=== PATIENT | male | born 1970 | race Caucasian/White ===

== ENCOUNTER 2018-01-14 13:41 | Emergency (ER) | payer MEDICAID ==
[~2018-01-14] VITALS: Ht 175.3 cm; Wt 104.3 kg
[2018-01-14 14:21] VITALS: BP_SYST 134
[2018-01-14] MEDS ORDERED: KETOROLAC TROMETHAMINE 60 MG/2 ML VIAL IM ONE (16:00)
== END 2018-01-14 16:10 | disposition left against medical advice (07) ==
LOC: SED 13:41
DX: S20.212A Contusion of left front wall of thorax, initial encounter (principal); I25.2 Old myocardial infarction; R03.0 Elevated blood-pressure reading, without diagnosis of hypertension; W19.XXXA Unspecified fall, initial encounter; Y93.89 Activity, other specified; Y92.89 Other specified places as the place of occurrence of the external cause; Y99.8 Other external cause status
CPT/HCPCS: 71250; 96372; 99284; J1885

== ENCOUNTER 2018-12-29 20:29 | Emergency (ER) | payer MEDICAID ==
[~2018-12-29] VITALS: Ht 175.3 cm; Wt 104.3 kg
[2018-12-29 20:40] VITALS: BP_SYST 145
--- NOTE | 2018-12-29 20:50 | NUR ---
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 Pt states that while working on a wooden picket and chain link fence. Pt states that he was using a tool similar to a sledge hammer and when he applied force, one of the chain links snapped causing the hammer to hit him in the left brow. +LOC, -N/V, no periorbitat deformities, no neuro or visual deficits, pain with movement of left eye.
--- NOTE | 2018-12-29 20:52 | NUR ---
Dr. Hawkins at bedside to suture laceration.
[2018-12-29] MEDS ORDERED: LIDOCAINE/EPI 1% 1:100000 20 ML VIAL INJ ONE (21:04)
--- NOTE | 2018-12-29 21:10 | NUR ---
Laceration well approximated with 3 sutures, no bleeding. Covered with non-adherent bandage.
--- NOTE | 2018-12-29 21:28 | NUR ---
Pt to CT via stretcher.
--- NOTE | 2018-12-29 21:33 | NUR ---
Note undone in EDM - 12/29/18 at 2310 by SDEDAJ Patient given written and verbal discharge instructions and verbalizes understanding. ER discussed with patient the results and treatment provided. Patient in stable condition. ID arm band removed. Rx of Motrin given. Patient educated on pain management and to follow up with PMD. Pain Scale 2/10. Opportunity for questions provided and answered. Medication side effect fact sheet provided.
--- NOTE | 2018-12-29 21:35 | NUR ---
Pt returns from CT in stable condition.
[2018-12-29] MEDS ORDERED: IBUPROFEN 600 MG TABLET PO ONE (21:45)
[2018-12-29 22:40] VITALS: BP_SYST 132
--- NOTE | 2018-12-29 22:40 | NUR ---
Patient given written and verbal discharge instructions and verbalizes understanding. ER MD discussed with patient the results and treatment provided. Patient in stable condition. ID arm band removed. Rx of Naprosyn given. Patient educated on pain management and to follow up with PMD. Pain Scale 3/10. Opportunity for questions provided and answered. Medication side effect fact sheet provided.
== END 2018-12-29 22:40 | disposition home or self-care (01) ==
LOC: SED 20:29
DX: S01.112A Laceration without foreign body of left eyelid and periocular area, initial encounter (principal); S06.0X1A Concussion with loss of consciousness of 30 minutes or less, initial encounter; W22.8XXA Striking against or struck by other objects, initial encounter; Y93.89 Activity, other specified; Y92.89 Other specified places as the place of occurrence of the external cause; Y99.8 Other external cause status
CPT/HCPCS: 70450-TC; 70486-TC; 99284

== ENCOUNTER 2019-07-09 20:07 | Emergency (ER) | payer MEDICAID ==
[~2019-07-09] VITALS: Ht 162.6 cm; Wt 104.3 kg
[2019-07-09 20:20] VITALS: BP_SYST 142
[2019-07-09] MEDS ORDERED: NACL 0.9% 1,000 ML IV ONE (20:52)
[2019-07-09 21:58] VITALS: BP_SYST 134
== END 2019-07-09 21:58 | disposition left against medical advice (07) ==
LOC: SED 20:07
DX: S92.532A Displaced fracture of distal phalanx of left lesser toe(s), initial encounter for closed fracture (principal); R10.12 Left upper quadrant pain; R07.89 Other chest pain; V23.4XXA Motorcycle driver injured in collision with car, pick-up truck or van in traffic accident, initial encounter; Y93.89 Activity, other specified; Y92.89 Other specified places as the place of occurrence of the external cause; Y99.8 Other external cause status
CPT/HCPCS: 99283

== ENCOUNTER 2019-11-29 17:48 | Inpatient (IN) | payer MEDICAID ==
[~2019-11-29] VITALS: Ht 175.3 cm; Wt 120.2 kg
[~2019-11-29 17:48] MED LIST: BUPIVACAINE /DEX PF 0.75% SPINAL 2 ML AMP INJ ONE; BUPIVACAINE /PF 0.25% 30 ML VIAL INJ ONE; LR 1,000 ML IV.SOLN IV ONE; MIDAZOLAM HCL 5 MG/5 ML VIAL IVP ONE; NS IRRIG SOLN 1000 ML IR ONE; PROPOFOL 200MG/ 20ML VIAL (DIPRIVAN) IV ONE; cefTRIAXone 1 GM VIAL IV ONE
[2019-11-29 18:00] VITALS: BP_SYST 148
--- NOTE | 2019-11-29 18:02 | NUR ---
Patient to ER bed 03 to gown for evaluation. Side rails up. Report given to MERCEDES Castillo
--- NOTE | 2019-11-29 18:03 | NUR ---
Patient presented to ER C/O abdominal pain. Patient AAOx4, ambulatory to ER, afebrile, skin pink & warm, pain /, denies N/V/D. Patient states he he has abdominal pain today, PT reports abd sx in HX.
--- NOTE | 2019-11-29 18:04 | NUR ---
EKG performed at by MAEVE LONG. Physician given copy of EKG for review.
--- NOTE | 2019-11-29 18:05 | NUR ---
ER Dr. Hilton at bedside examining patient.
--- NOTE | 2019-11-29 18:09 | NUR ---
# 18 gauge angiocath placed to RIGHT AC. Use of asceptic technique. Opsite placed over site. Blood return noted. Blood for lab drawn from site. Flushed with 10 cc of normal saline. No evidence of infiltration noted. Patient tolerated well. Medicated per MD orders. IVF infusing with no s/s of infiltration at this time. Will cont to monitor
--- NOTE | 2019-11-29 18:10 | NUR ---
Note undone in EDM - 11/29/19 at 1907 by [email or web address] # 18 gauge angiocath placed to L AC. Use of asceptic technique. Opsite placed over site. Blood return noted. Blood for lab drawn from site. Flushed with 10 cc of normal saline. No evidence of infiltration noted. Patient tolerated well. Medicated per MD orders. IVF infusing with no s/s of infiltration at this time. Will cont to monitor
[2019-11-29] MEDS ORDERED: NACL 0.9% 1,000 ML IV ONE (18:15)
[2019-11-29] MEDS ORDERED: fentaNYL CITRATE/PF 100 MCG/2 ML AMP IVP ONE (18:15)
[2019-11-29 18:33] LABS: BASOPHILS # (AUTO) 0.1 K/uL (0.0-0.2); BASOPHILS % (AUTO) 0.5 % (0.0-2.0); EOSINOPHILS # (AUTO) 0.2 K/uL (0.0-0.4); EOSINOPHILS % (AUTO) 1.4 % (0.0-4.0); HEMATOCRIT 47.5 % (36-54); HEMOGLOBIN 16.3 g/dL (14.0-18.0); LYMPHOCYTES # (AUTO) 2.8 K/uL (1.0-5.5); LYMPHOCYTES % (AUTO) 21.2 % (20.5-51.5); MEAN CORPUSCULAR HEMOGLOBIN 31 pg (27-31); MEAN CORPUSCULAR HGB CONC 34 % (32-36); MEAN CORPUSCULAR VOLUME 89 fL (79.0-98.0); MONOCYTES # (AUTO) 0.8 K/uL (0.0-1.0); MONOCYTES % (AUTO) 6.1 % (1.7-9.3); NEUTROPHILS # (AUTO) 9.5 K/uL (1.8-7.7); NEUTROPHILS % (AUTO) 70.8 % (40.0-70.0); PLATELET COUNT (AUTO) 279 K/uL (130-430); RED BLOOD CELL COUNT(AUTO) 5.35 MIL/uL (4.2-6.2); RED CELL DISTRIBUTION WIDTH 13.5 % (9.0-15.0); WHITE BLOOD COUNT (AUTO) 13.4 K/uL (4.8-10.8)
[2019-11-29 18:41] LABS: ANION GAP 3 (5-15); CALCIUM 9.1 mg/dL (8.4-11.0); CHLORIDE 102 mmol/L (98-107); CREATININE 1.04 mg/dL (0.55-1.30); GLUCOSE 115 mg/dL (70-99); POTASSIUM 4.2 mmol/L (3.5-5.1); SODIUM SERUM 136 mmol/L (136-145); UREA NITROGEN, BLOOD 18 mg/dL (8-21)
[2019-11-29 18:45] LABS: GFR AFRICAN AMERICAN 97 mL/min (>90)
[2019-11-29] MEDS ORDERED: IOHEXOL 350 mgI/mL, 150 ML INFUS..BTL IV ONE (18:46)
[2019-11-29 18:47] LABS: ALANINE AMINOTRANSFERASE 52 U/L (12-78); ALBUMIN 3.8 g/dL (3.4-4.8); ASPARTATE AMINOTRANSFERASE 33 U/L (10-37); LIPASE 85 U/L (73-393); TOTAL BILIRUBIN 0.4 mg/dL (0.0-1.0)
[2019-11-29 18:48] LABS: PROTHROMBIN TIME 9.6 SECS (9.5-12.5)
[2019-11-29 19:02] LABS: ALCOHOL, BLOOD < 3 mg/dL (<10)
--- NOTE | 2019-11-29 19:15 | NUR ---
PATIENT TO ER BED [address]/RADIOLOGY.
--- NOTE | 2019-11-29 19:18 | NUR ---
REPORT TO FRANKLIN LONG
[2019-11-29 19:49] LABS: BILIRUBIN,URINE NEGATIVE (NEGATIVE); BLOOD, URINE NEGATIVE (NEGATIVE); CLARITY/URINE CLEAR (CLEAR); COLOR,URINE YELLOW (YELLOW); GLUCOSE,URINE NEGATIVE (NEGATIVE); KETONES,URINE NEGATIVE (NEGATIVE); LEUKOCYTE ESTERASE ,URINE NEGATIVE (NEGATIVE); NITRITE, URINE NEGATIVE (NEGATIVE); PROTEIN URINE NEGATIVE (NEGATIVE); UROBILINOGEN,URINE 0.2 (0.2-1.0)
--- NOTE | 2019-11-29 20:19 | NUR ---
VSS no s/s of acute distress, pt still wanting Dr. García to assess his pain, Dr. García aware
[2019-11-29 20:23] LABS: BARBITURATE, URINE NEGATIVE (NEG <=200); BENZODIAZEPINE, URINE NEGATIVE (NEG <=150); CANNABINOID, URINE NEGATIVE (NEG <=50); COCAINE, URINE NEGATIVE (NEG <=150); METHAMPHETAMINES SCREEN,URINE POSITIVE (NEG <=500); OPIATE, URINE NEGATIVE (NEG <=100); PHENCYCLIDINE SCREEN,URINE NEGATIVE (NEG <=25); UR TRICYCLIC ANTIDEPRESSANTS NEGATIVE (NEG <=300); URINE AMPHETAMINE POSITIVE (NEG <=500); URINE METHADONE NEGATIVE (NEG <=200); URINE OXYCODONE SCREEN NEGATIVE (NEG <=100); URINE PROPOXYPHENE SCREEN NEGATIVE (NEG <=300)
[2019-11-29] MEDS ORDERED: MORPHINE 2 MG/ML INJ. SYRINGE IVP ONE (20:45)
--- NOTE | 2019-11-29 21:20 | NUR ---
Pt Remains in stable condition, stating pain got a little better
--- NOTE | 2019-11-29 22:09 | NUR ---
Patient will be admitted to care of Dr. Shea. Admitted to Med Surg unit. Room placement pending. Complete and up to date summary report printed. SBAR report to be given at bedside with opportunity for questions.
--- NOTE | 2019-11-29 22:51 | NUR ---
Patient's code status is FULL CODE paperwork completed and placed in chart.
--- NOTE | 2019-11-29 22:51 | NUR ---
Medication reconciliation completed with information provided by PATIENT. Any prior medication reconciliation on file was reviewed and corrected.
--- NOTE | 2019-11-29 23:09 | NUR ---
Patient will be admitted to care of Dr. Shea. Admitted to Med Surg unit. Will go to room 114B. Belongings list completed. Complete and up to date summary report printed. SBAR report to be given at bedside with opportunity for questions.
--- NOTE | 2019-11-29 23:09 | NUR ---
Admission Note Received patient from ER with diagnosis of ABDOMINAL PAIN. Initial Plan of Care discussed-patient verbalized understanding. Oriented to room, call light, pain management and safety.
[2019-11-29 23:39] VITALS: BP_SYST 155
--- NOTE | 2019-11-30 | NUR ---
Paged Dr. Carlton Shea [phone] s/w Patricia
[2019-11-30] MEDS: MORPHINE 4 MG/ML INJ. SYRINGE IVP PRN ×3 (00:12→08:30)
[2019-11-30] MEDS: D5/0.45 NS 1,000 ML IV SCH ×2 (00:14→14:22)
[2019-11-30] MEDS ORDERED: LORazepam 2 MG/ML VIAL IVP PRN (00:15)
--- NOTE | 2019-11-30 01:00 | NUR ---
ROUNDS/REPOSITIONED PATIENT IN BED, WOKE UP, REQUESTED TO BE REPOSITIONED. IVF INFUSING WELL. CALL LIGHT WITH PATIENT. WILL CONTINUE TO MONITOR.
--- NOTE | 2019-11-30 03:00 | NUR ---
ROUNDS PATIENT ASLEEP, NO S/S OF ACUTE DISTRESS NOTED. HOB SLIGHTLY RAISED. BREATHING EVEN AND UNLABORED. IVF INFUSING WELL. CALL LIGHT WITH PATIENT. WILL CONTINUE TO MONITOR.
--- NOTE | 2019-11-30 04:15 | NUR ---
PAIN PATIENT WOKE UP, COMPLAINING OF ABDOMINAL PAIN. PRN MEDICATION ADMINISTERED. ALL NEEDS MET. CALL LIGHT WITH PATIENT. WILL CONTINUE TO MONITOR.
--- NOTE | 2019-11-30 05:37 | NUR ---
CONSULTATION PAGED/CALLED Reason for Consultation: ABDOMINAL PAIN Person Who was Notified: MERCEDEZ Consulting Physician: DR.SNYDER GRANADOS Frame And Scrap Crusher Specialty:GI Ordering Physician:
--- NOTE | 2019-11-30 06:08 | NUR ---
CLOSING NOTE PATIENT IN BED, SLEEPING COMFORTABLY AT THIS TIME. NO S/S OF ACUTE DISTRESS NOTED. BREATHING IS EVEN AND UNLABORED. HOB SLIGHTLY RAISED. IVF INFUSING WELL, IV SITE IS PATENT, NO SIGNS OF INFILTRATION OR INFECTION NOTED. ALL NEEDS MET THROUGHOUT SHIFT. FALL, SAFETY PRECAUTIONS MAINTAINED THROUGHOUT SHIFT. WILL CONTINUE TO MONITOR UNTIL PATIENT CARE IS ENDORSED TO ONCOMING DAYSHIFT NURSE.
--- NOTE | 2019-11-30 06:11 | NUR ---
CONSULTATION PAGED/CALLED Reason for Consultation: ABDOMINAL PAIN Person Who was Notified: BRYSON Consulting Physician: Cap And Hat Production Supervisor Specialty: Ordering Physician:
[2019-11-30 07:20] LABS: BASOPHILS # (AUTO) 0.1 K/uL (0.0-0.2); BASOPHILS % (AUTO) 0.6 % (0.0-2.0); EOSINOPHILS # (AUTO) 0.2 K/uL (0.0-0.4); EOSINOPHILS % (AUTO) 1.6 % (0.0-4.0); HEMATOCRIT 47.1 % (36-54); HEMOGLOBIN 15.9 g/dL (14.0-18.0); LYMPHOCYTES # (AUTO) 2.5 K/uL (1.0-5.5); LYMPHOCYTES % (AUTO) 17.7 % (20.5-51.5); MEAN CORPUSCULAR HEMOGLOBIN 30 pg (27-31); MEAN CORPUSCULAR HGB CONC 34 % (32-36); MEAN CORPUSCULAR VOLUME 90 fL (79.0-98.0); MONOCYTES # (AUTO) 0.8 K/uL (0.0-1.0); MONOCYTES % (AUTO) 5.6 % (1.7-9.3); NEUTROPHILS # (AUTO) 10.4 K/uL (1.8-7.7); NEUTROPHILS % (AUTO) 74.5 % (40.0-70.0); PLATELET COUNT (AUTO) 267 K/uL (130-430); RED BLOOD CELL COUNT(AUTO) 5.24 MIL/uL (4.2-6.2); RED CELL DISTRIBUTION WIDTH 13.8 % (9.0-15.0)
--- NOTE | 2019-11-30 07:28 | NUR ---
Dr. Bowman rounds assessed patient, keep patient NPO no ice chips for EGD today, will follow up.
[2019-11-30 07:37] VITALS: BP_SYST 141
--- NOTE | 2019-11-30 07:37 | NUR ---
Opening Note patient in bed resting, a/o x 4, respirations even and unlabored, IV line is patent and infusing well, assessment complete, educated patient on plan of care, safety measures put in place, bed locked and at lowest position, call light within reach, will monitor patient for any changes.
[2019-11-30 08:01] LABS: ALBUMIN 3.4 g/dL (3.4-4.8); CALCIUM 8.6 mg/dL (8.4-11.0); CREATININE 1.08 mg/dL (0.55-1.30); POTASSIUM 3.7 mmol/L (3.5-5.1); TOTAL BILIRUBIN 0.6 mg/dL (0.0-1.0)
--- NOTE | 2019-11-30 08:30 | NUR ---
Nutrition Update Albert scale 18 noted. Pt admitted for Abdominal pain Diet: NPO BMI: 39.1 kg/m2 RD to follow per nutrition care standards.
--- NOTE | 2019-11-30 08:30 | NUR ---
RN Rounds/Medication patient in bed resting, administered pain medication as ordered per MD, patient tolerated well, safety measures maintained, bed locked and at lowest position, call light within reach, will continue to monitor patient for any changes.
[2019-11-30] MEDS ORDERED: fentaNYL CITRATE/PF 100 MCG/2 ML AMP ONE (08:46)
[2019-11-30] MEDS ORDERED: MIDAZOLAM HCL 5 MG/5 ML VIAL ONE (08:46)
--- NOTE | 2019-11-30 08:50 | NUR ---
Patient left to GI lab, patient in stable condition.
[2019-11-30] MEDS ORDERED: MEPERIDINE HCL/PF 100 MG/ML AMP ONE (09:12)
[2019-11-30] MEDS ORDERED: PANTOPRAZOLE SODIUM 40 MG/VIAL (PROTONIX) IVP ONE (10:45)
--- NOTE | 2019-11-30 11:20 | NUR ---
Patient returned from GI lab patient in stable condition.
--- NOTE | 2019-11-30 11:55 | NUR ---
RN Rounds/Medication administered medication as ordered per MD, patient tolerated well, no other needs at this time, safety precautions maintained, will monitor patient for any changes.
--- NOTE | 2019-11-30 12:44 | NUR ---
Patient was taken for upper GI procedure patient in stable condition.
[2019-11-30] MEDS ORDERED: GASTROGRAFIN 120 ML PO ONE (12:57)
[2019-11-30] MEDS ORDERED: KETOROLAC TROMETHAMINE 30 MG VIAL IVP ONE (13:00)
[2019-11-30] MEDS ORDERED: GASTROGRAFIN 120 ML ONE (13:10)
--- NOTE | 2019-11-30 14:16 | NUR ---
Patient back on unit/Pain from Radiology, SBFT not complete yet, patient will have follow up xrays at bedside in one hour. Educated patient on new pain medication uses and potential side effects, he verbalized understanding and tolerated well, IV line is patent and infusing well, continuing to monitor, safety precautions in place.
--- NOTE | 2019-11-30 16:50 | NUR ---
RN Rounds patient in bed sleeping, no signs of distress noted, respirations even and unlabored, safety measures maintained, bed locked and in lowest position.
[2019-11-30 16:58] VITALS: BP_SYST 137
[2019-11-30] MEDS: KETOROLAC TROMETHAMINE 30 MG VIAL IVP SCH (19:00)
--- NOTE | 2019-11-30 19:12 | NUR ---
Closing Note patient in bed, a/o x 4, no signs of distress, respirations even and unlabored, IV line patent and infusing well, safety measures maintained through out shift, bed locked and at lowest position, call light within reach, endorsed patient care to night filler nurse.
--- NOTE | 2019-11-30 19:15 | NUR ---
OPENING NOTE REPORT RECEIVED FROM DAYSHIFT NURSE. PATIENT RECEIVED LYING IN BED, NO S/S OF ACUTE DISTRESS NOTED. BREATHING EVEN A ND UNLABORED. HOB SLIGHTLY RAISED. IVF INFUSING WELL, IV SITE IS PATENT, NO SIGNS OF INFILTRATION OR INFECTION NOTED. CALL LIGHT WITH PATIENT. BED IS LOCKED AND AT LOWEST POSITION. WILL CONTINUE TO MONITOR.
--- NOTE | 2019-11-30 19:30 | NUR ---
REFUSE TORADOL SCHEDULED TORADOL REFUSED AT THIS TIME. PATIENT STATES HE DOESN'T WANT ANY MEDICATIONS AT THIS TIME, PATIENT EDUCATED ON TORADOLS PURPOSE AND BENEFITS, PATIENT STILL REFUSES. CALL LIGHT WITH PATIENT. WILL CONTINUE TO MONITOR.
[2019-11-30 20:00] VITALS: BP_SYST 142
[2019-11-30] MEDS: PANTOPRAZOLE SODIUM 40 MG/VIAL (PROTONIX) IVP SCH (20:42)
[2019-11-30] MEDS: ONDANSETRON HCL 4 MG/2 ML VIAL IVP PRN (22:18)
--- NOTE | 2019-11-30 22:18 | NUR ---
NAUSEA PATIENT COMPLAINED OF FEELING NAUSEOUS, PRN MEDICATION ADMINISTERED. WILL CONTINUE TO MONITOR AND REASSESS.
[2019-12-01] VITALS: BP_SYST 136
[2019-12-01] MEDS: D5/0.45 NS 1,000 ML IV SCH ×4 (00:13→20:41)
[2019-12-01] MEDS: KETOROLAC TROMETHAMINE 30 MG VIAL IVP SCH ×2 (00:14→06:13)
--- NOTE | 2019-12-01 01:08 | NUR ---
ROUNDS PATIENT IN BED SLEEPING COMFORTABLY. NO SIGNS OF DISCOMFORT. CHEST RISE AND FALL EVEN BILATERALLY. CALL LIGHT WITH PATIENT. WILL CONTINUE TO MONITOR.
--- NOTE | 2019-12-01 06:48 | NUR ---
CLOSING NOTE PATIENT IN BED, ASLEEP, NO S/S OF ACUTE DISTRESS NOTED. BREATHING EVEN AND UNLABORED. IVF INFUSING WELL, IV SITE PATENT, NO SIGNS OF INFILTRATION OR INFECTION NOTED. ALL NEEDS MET THROUGHOUT SHIFT. FALL AND SAFETY PRECAUTIONS MAINTAINED THROUGHOUT SHIFT. WILL CONTINUE TO MONITOR UNTIL PATIENT CARE IS ENDORSED TO ONCOMING DAYSHIFT NURSE.
[2019-12-01 07:40] VITALS: BP_SYST 113
[2019-12-01] MEDS: PANTOPRAZOLE SODIUM 40 MG/VIAL (PROTONIX) IVP SCH ×2 (08:03→20:35)
[2019-12-01 08:11] LABS: CALCIUM 8.3 mg/dL (8.4-11.0); CREATININE 1.01 mg/dL (0.55-1.30); POTASSIUM 3.8 mmol/L (3.5-5.1)
[2019-12-01 08:20] LABS: BASOPHILS # (AUTO) 0.1 K/uL (0.0-0.2); BASOPHILS % (AUTO) 0.4 % (0.0-2.0); EOSINOPHILS # (AUTO) 0.1 K/uL (0.0-0.4); EOSINOPHILS % (AUTO) 0.5 % (0.0-4.0); HEMATOCRIT 45.7 % (36-54); HEMOGLOBIN 15.3 g/dL (14.0-18.0); LYMPHOCYTES % (AUTO) 14.7 % (20.5-51.5); MEAN CORPUSCULAR HEMOGLOBIN 30 pg (27-31); MEAN CORPUSCULAR HGB CONC 33 % (32-36); MEAN CORPUSCULAR VOLUME 89 fL (79.0-98.0); MONOCYTES # (AUTO) 0.8 K/uL (0.0-1.0); NEUTROPHILS # (AUTO) 10.4 K/uL (1.8-7.7); NEUTROPHILS % (AUTO) 78.4 % (40.0-70.0); PLATELET COUNT (AUTO) 262 K/uL (130-430); RED BLOOD CELL COUNT(AUTO) 5.12 MIL/uL (4.2-6.2); RED CELL DISTRIBUTION WIDTH 13.4 % (9.0-15.0); WHITE BLOOD COUNT (AUTO) 13.3 K/uL (4.8-10.8)
[2019-12-01] MEDS: MORPHINE 2 MG/ML INJ. SYRINGE IVP PRN (08:33)
--- NOTE | 2019-12-01 09:06 | NUR ---
RN Rounds patient in bed sleeping, no signs of distress noted, bed locked and at low position, safety measures maintained, fall and aspiration precautions maintained, call light within reach, will continue to monitor patient.
[2019-12-01 11:57] VITALS: BP_SYST 105
--- NOTE | 2019-12-01 12:05 | NUR ---
RN Rounds patient is awake and alert, no other needs at this time, will continue to monitor patient for any changes, safety measures maintained.
[2019-12-01] MEDS: ONDANSETRON HCL 4 MG/2 ML VIAL IVP PRN (12:33)
--- NOTE | 2019-12-01 14:09 | NUR ---
Spoke with Physician spoke with Dr. Prabhakar, informed her of orders for femoral block, per Dr. Prabhakar she does not do femoral blocks and is not going to see the patient, informed Dr. Carlton Shea, orders received for new consult, verified with read back.
--- NOTE | 2019-12-01 14:26 | NUR ---
CONSULTATION PAGED/CALLED Reason for Consultation: PAIN MANAGEMENT Person Who was Notified: ANTONY Consulting Physician: MARITZA [employer] Recruiting Intern Specialty: Ordering Physician: Carlton GARCIA
--- NOTE | 2019-12-01 15:05 | NUR ---
Spoke with Physician spoke with Dr. Prabhakar, per Dr. Prabhakar she spoke with Dr. Maria and he stated that a femoral nerve block would not be effected for the patient, Dr. Maria will not be performing a femoral nerve block.
[2019-12-01] MEDS: MORPHINE 4 MG/ML INJ. SYRINGE IVP PRN ×2 (15:35→20:36)
--- NOTE | 2019-12-01 15:35 | NUR ---
RN Rounds/Medication patient sitting in bed awake, administered pain medication ordered per MD, patient tolerated well, bed locked and at low position, call light within reach, safety precautions maintained.
[2019-12-01 16:14] VITALS: BP_SYST 116
--- NOTE | 2019-12-01 17:35 | NUR ---
RN Rounds patient in bed sleeping, respiration even and unlabored, no other needs at this time, will continue to monitor patient, safety precautions continued to be maintained.
--- NOTE | 2019-12-01 19:38 | NUR ---
Closing Note patient in bed resting, Dr. Freeman assessing patient at bedside, bed locked and at low position, call light within reach, fall and aspiration precautions maintained through out shift, endorsed patient care to night coordinator nurse.
[2019-12-01 20:10] VITALS: BP_SYST 104
--- NOTE | 2019-12-01 20:36 | NUR ---
Opening notes/Pain Pt AAOx4, VSS, afebrile. No s/s distress noted. Pt c/o severe L. rib/chest pain. Medicated with Morphine 4mg IVP. IVF infusing at ordered rate R. AC 18G no s/s infiltration. Call light within reach. Bed low, locked, siderails upx2. To monitor.
--- NOTE | 2019-12-01 23:50 | NUR ---
IV RE-INSERTION: Pt pulled out IV by accident. Restarted IV L. hand 22G. Good blood return. Successful after x1 attempts. Resumed current IVF at ordered rate. Will observe for any signs of infiltration. Pt tolerated well.
[2019-12-02] MEDS: MORPHINE 4 MG/ML INJ. SYRINGE IVP PRN ×6 (00:30→21:05)
--- NOTE | 2019-12-02 00:30 | NUR ---
Pain med Pt Alert, awake, VSS, afebrile. No s/s distress noted. Pt c/o 10/10 L. rib/chest pain. Medicated with Morphine 4mg IVP. IVF infusing at ordered rate L. hand 22G no s/s infiltration. Pt updated with plan of care and ultrasound order for the AM. Pt verb understanding. Call light within reach. Bed low, locked, siderails upx2. To monitor.
[2019-12-02 02:07] VITALS: BP_SYST 126
--- NOTE | 2019-12-02 04:23 | NUR ---
Rounds/Pain med Pt awake, c/o sharp pain 10/10 L. rib. Medicated with Morphine 4mg IVP as needed for pain. Call light within reach. Bed low, locked, siderails up x2. To endorse to AM nurse.
--- NOTE | 2019-12-02 06:10 | NUR ---
Closing notes Pt awake, no s/s distress noted. Pt states pain is "ok" at this time. Lab drawn per lab. IVF infusing at ordered rate L hand 22G clear and patent. Bed low, locked, siderails up x2. To endorse to AM nurse.
[2019-12-02 06:40] LABS: BASOPHILS # (AUTO) 0.1 K/uL (0.0-0.2); BASOPHILS % (AUTO) 0.5 % (0.0-2.0); EOSINOPHILS # (AUTO) 0.2 K/uL (0.0-0.4); EOSINOPHILS % (AUTO) 1.6 % (0.0-4.0); HEMATOCRIT 43.5 % (36-54); HEMOGLOBIN 14.7 g/dL (14.0-18.0); LYMPHOCYTES # (AUTO) 2.4 K/uL (1.0-5.5); LYMPHOCYTES % (AUTO) 22.8 % (20.5-51.5); MEAN CORPUSCULAR HEMOGLOBIN 30 pg (27-31); MEAN CORPUSCULAR HGB CONC 34 % (32-36); MEAN CORPUSCULAR VOLUME 90 fL (79.0-98.0); MONOCYTES # (AUTO) 0.8 K/uL (0.0-1.0); MONOCYTES % (AUTO) 7.2 % (1.7-9.3); NEUTROPHILS # (AUTO) 7.2 K/uL (1.8-7.7); NEUTROPHILS % (AUTO) 67.9 % (40.0-70.0); PLATELET COUNT (AUTO) 232 K/uL (130-430); RED BLOOD CELL COUNT(AUTO) 4.84 MIL/uL (4.2-6.2); RED CELL DISTRIBUTION WIDTH 13.4 % (9.0-15.0); WHITE BLOOD COUNT (AUTO) 10.6 K/uL (4.8-10.8)
[2019-12-02 07:17] LABS: CALCIUM 7.9 mg/dL (8.4-11.0); CREATININE 1.01 mg/dL (0.55-1.30)
--- NOTE | 2019-12-02 07:21 | NUR ---
Opening Note received bedside SBAR report from machinist 2nd shift RN, patient resting in bed, respirations even and unlabored on room air, no acute distress noted, patient reports pain is controlled at this time, educated patient on use of call light and asked to call for assistance, patient verbalized understanding, call light in reach, educated patient on use of bed alarm for patient safety, patient verbalized understanding, patient refusing bed alarm, bed in low and locked position.
[2019-12-02 08:00] VITALS: BP_SYST 108
[2019-12-02] MEDS: PANTOPRAZOLE SODIUM 40 MG/VIAL (PROTONIX) IVP SCH ×2 (08:28→21:03)
[2019-12-02] MEDS: D5/0.45 NS 1,000 ML IV SCH ×2 (09:08→14:47)
--- NOTE | 2019-12-02 09:55 | NUR ---
US Abdomen/Scrotum US tech at bedside for abdominal/scrotal US, male RN present at bedside, patient agrees to have US completed, patient tolerating well, no acute distress noted.
--- NOTE | 2019-12-02 11:07 | NUR ---
RN Rounds patient sitting up in bed eating snack, tolerating well, patient reports pain is controlled at this time, no acute distress noted.
--- NOTE | 2019-12-02 12:09 | NUR ---
CONSULTATION PAGED/CALLED Reason for Consultation: TESTICULAR PAIN/MASS Person Who was Notified: DR. JOAO BROWN Consulting Physician: DR. JOAO BROWN Baby Counselor Specialty: UROLOGIST Ordering Physician: DR. GARCIA
[2019-12-02 12:18] VITALS: BP_SYST 138
--- NOTE | 2019-12-02 12:25 | NUR ---
Case mgt: Rec'd dc planning order for home--pt lives with family--has been independent with ADLs--pt having Thoracic CT, abd/testicular US today..WBC 10.6, not on IV abx per 12/02/19--on Room air--SÁNCHEZ RN
--- NOTE | 2019-12-02 13:04 | NUR ---
Physician Rounds Dr. Tatum at bedside examining patient.
--- NOTE | 2019-12-02 13:40 | NUR ---
Spoke with physician spoke with Dr. Carlton Shea, he is aware of surgery tomorrow morning, new orders received, verified with read back.
--- NOTE | 2019-12-02 13:53 | NUR ---
Physician Rounds rounds with Dr. Freeman, informed him that CT thoracic spine was completed, per Dr. Pete amado to cancel XR thoracic spine, informed radiology.
--- NOTE | 2019-12-02 14:08 | NUR ---
CONSULTATION PAGED/CALLED Reason for Consultation: cardiac clearance Person Who was Notified: Dottie Consulting Physician: Dr. JOSE Gonzalez Scoop Operator Specialty: PAPER RULER Ordering Physician: Dr. Jose Templeton
[2019-12-02] MEDS: SIMETHICONE 80 MG TAB.CHEW PO SCH ×2 (14:47→21:03)
--- NOTE | 2019-12-02 15:19 | NUR ---
RN Rounds patient requesting snack, provided patient with beef broth since patient is on clear liquid diet, patient sitting up in bed eating snack, tolerating well, patient denies any nausea or vomiting.
[2019-12-02 16:25] VITALS: BP_SYST 126
--- NOTE | 2019-12-02 17:12 | NUR ---
Physician Rounds Dr. Bishnu Shea at bedside examining patient.
--- NOTE | 2019-12-02 19:09 | NUR ---
Closing Note bedside SBAR report given to receiving RN, patient resting in bed, respirations even and unlabored, patient reports pain is controlled at this time, no acute distress noted, educated patient on use of call light and asked to call for assistance, patient verbalized understanding, call light in reach, educated patient on use of bed alarm for patient safety, patient verbalized understanding, patient refusing bed alarm, bed in low and locked position, care endorsed to Ines RN.
--- NOTE | 2019-12-02 20:20 | NUR ---
Dr. Pete deal.
[2019-12-02 20:30] VITALS: BP_SYST 145
--- NOTE | 2019-12-02 21:05 | NUR ---
Opening notes Pt resting in bed. C/O severe pain L. rib. No s/s distress noted. VSS. Offered ice pack, pt refused. Medicated with Morphine 4mg IVP as needed. IVF infusing at ordered rate L. hand 22G no s/s infiltration. Updated pt with plan of care. NPO after midnight for surgery tomorrow, pt verbalized understanding. Bed low, locked, siderails up x2. To monitor.
[2019-12-03 00:42] VITALS: BP_SYST 138
[2019-12-03] MEDS: D5/0.45 NS 1,000 ML IV SCH ×3 (00:43→23:02)
[2019-12-03] MEDS: MORPHINE 4 MG/ML INJ. SYRINGE IVP PRN ×5 (00:43→21:53)
--- NOTE | 2019-12-03 00:43 | NUR ---
Pain med Pt asleep, easily awakens. C/O severe pain L. rib. No s/s distress noted. VSS. Medicated with Morphine 4mg IVP as needed. Bed low, locked, siderails up x2. To monitor.
--- NOTE | 2019-12-03 06:20 | NUR ---
MRSA nares collected and sent to lab.
--- NOTE | 2019-12-03 06:23 | NUR ---
Closing notes Pt AAOx4, no s/s distress noted. Pt c/o severe pain L. rib. Medicated with Morphine 4mg IVP as needed. IVF infusing at ordered rate L. hand 22G no s/s infiltration. Pt remains NPO for surgery. Call light within reach. Safety maintained. To endorse to AM nurse.
[2019-12-03 06:41] LABS: BASOPHILS # (AUTO) 0.1 K/uL (0.0-0.2); BASOPHILS % (AUTO) 0.7 % (0.0-2.0); EOSINOPHILS # (AUTO) 0.3 K/uL (0.0-0.4); EOSINOPHILS % (AUTO) 2.7 % (0.0-4.0); HEMATOCRIT 43.5 % (36-54); HEMOGLOBIN 14.9 g/dL (14.0-18.0); LYMPHOCYTES # (AUTO) 1.9 K/uL (1.0-5.5); LYMPHOCYTES % (AUTO) 18.2 % (20.5-51.5); MEAN CORPUSCULAR HEMOGLOBIN 30 pg (27-31); MEAN CORPUSCULAR HGB CONC 34 % (32-36); MEAN CORPUSCULAR VOLUME 88 fL (79.0-98.0); MONOCYTES # (AUTO) 0.7 K/uL (0.0-1.0); MONOCYTES % (AUTO) 6.8 % (1.7-9.3); NEUTROPHILS # (AUTO) 7.4 K/uL (1.8-7.7); NEUTROPHILS % (AUTO) 71.6 % (40.0-70.0); PLATELET COUNT (AUTO) 262 K/uL (130-430); RED BLOOD CELL COUNT(AUTO) 4.92 MIL/uL (4.2-6.2); RED CELL DISTRIBUTION WIDTH 13.1 % (9.0-15.0); WHITE BLOOD COUNT (AUTO) 10.3 K/uL (4.8-10.8)
[2019-12-03 06:52] LABS: PROTHROMBIN TIME 10.4 SECS (9.5-12.5)
[2019-12-03 07:03] LABS: ALBUMIN 3.1 g/dL (3.4-4.8); CALCIUM 8.4 mg/dL (8.4-11.0); CREATININE 0.9 mg/dL (0.55-1.30); POTASSIUM 3.6 mmol/L (3.5-5.1); TOTAL BILIRUBIN 0.5 mg/dL (0.0-1.0)
[2019-12-03 08:00] VITALS: BP_SYST 109
--- NOTE | 2019-12-03 08:00 | NUR ---
Initial notes Awake, oriented. ambulate with steady gait. update plan of care. keep npo for procedure. Call light in reach. enc to call for help as needed. pt verbalize understanding.
[2019-12-03] MEDS: PANTOPRAZOLE SODIUM 40 MG/VIAL (PROTONIX) IVP SCH ×2 (08:53→20:19)
[2019-12-03] MEDS: SIMETHICONE 80 MG TAB.CHEW PO SCH ×3 (08:54→20:19)
[2019-12-03] MEDS: LIDOCAINE PATCH 5% 1 EA TP SCH (08:54)
--- NOTE | 2019-12-03 10:30 | NUR ---
Notes Complain of pain of his right side 10/10 pain level. medicated with morphine as ordered. Addendum: 12/03/19 at 1116 by Inés Campbell RN complain of pain on his left side not right side.
[2019-12-03 13:18] VITALS: BP_SYST 129
--- NOTE | 2019-12-03 14:47 | NUR ---
notes- complain of pain 10/10 pain level, medicated with morphine as ordered. no acute distress noted. will continue to monitor.
--- NOTE | 2019-12-03 15:55 | NUR ---
Notes- Pt went to surgery at this time.
[2019-12-03 16:00] VITALS: BP_SYST 147
[2019-12-03] MEDS ORDERED: BISACODYL 5 MG TABLET.DR (DULCOLAX) PO ONE (17:00)
[2019-12-03] MEDS ORDERED: fentaNYL CITRATE/PF 100 MCG/2 ML AMP IVP PRN ×2 (17:15)
[2019-12-03] MEDS ORDERED: ONDANSETRON HCL 4 MG/2 ML VIAL IVP PRN (17:15)
[2019-12-03] MEDS ORDERED: ePHEDrine sulfate 50 MG/ML VIAL ONE (17:46)
--- NOTE | 2019-12-03 17:53 | NUR ---
Notes- Patient still in OR at this time.
[2019-12-03] MEDS ORDERED: GOLYTELY / COLYTE SOLUTION 4 LITERS PO ONE (18:00)
--- NOTE | 2019-12-03 18:45 | NUR ---
PAGED FOR CONSULT PANCHITO PORTER REASON FOR CONSULT: SCROTAL ABSCESS ORDERING PHYSICIAN: ARTEMIO CAPUTO DIALED: [phone] SPOKE TO: MELI
--- NOTE | 2019-12-03 19:00 | NUR ---
Notes- received patient from recovery room, awake and oriented. able to move and wiggle toes. denies any pain at this time. given ice chips. Spoke to Dr. Pritchett and made aware of consults, new order received.
--- NOTE | 2019-12-03 19:25 | NUR ---
OPENING NOTES Received patient resting, no signs of acute respiratory distress noted. Currently taking post-op vitals after returning from I/D of scrotum area. IV site patent, dressings c/d/i, IVF running. Call light within reach, bed alarm on, bed at lowest position. Patient states he is in pain at this time, will reassess when providing pain medication PRN. Patient to have a colonoscopy tomorrow afternoon per patient. Will continue to monitor.
[2019-12-03 20:00] VITALS: BP_SYST 113
[2019-12-03] MEDS: VANCOMYCIN HCL 1,500 MG in NS 250 ML IV SCH (20:19)
[2019-12-03 20:51] VITALS: BP_SYST 96
--- NOTE | 2019-12-03 21:13 | NUR ---
Patient verbalizes understanding for bowel prep for colonoscopy and has agreed to drink golytely and take dulcolax. Patient still resistant to the bowel prep, as patient states that he has not eaten for four to five days. Will continue to monitor.
--- NOTE | 2019-12-03 21:20 | NUR ---
DR. ACOSTA AT BEDSIDE, Patient asking if he has to drink golytely, and MD has explained that bowel prep should be done as well. Patient verbalizes understanding.
[2019-12-03] MEDS: PIPERACILLIN/TAZO 4.5GM/DEX-IS 100 ML IV SCH (22:48)
--- NOTE | 2019-12-03 23:30 | NUR ---
Patient has very little sediments in bowel movement, and it is clear at this time. Will continue to monitor bowel movements. Patient states no needs at this time. Will continue to monitor.
[2019-12-04] VITALS: BP_SYST 116
--- NOTE | 2019-12-04 02:27 | NUR ---
Patient ambulated to the restroom with steady gait, patient is back in bed, no signs of distress noted. Will continue to monitor.
[2019-12-04] MEDS: MORPHINE 4 MG/ML INJ. SYRINGE IVP PRN ×3 (03:12→18:52)
[2019-12-04] MEDS: VANCOMYCIN HCL 1,500 MG in NS 250 ML IV SCH ×3 (03:14→21:29)
[2019-12-04] MEDS: PIPERACILLIN/TAZO 4.5GM/DEX-IS 100 ML IV SCH ×3 (06:18→21:30)
[2019-12-04 06:57] LABS: BASOPHILS # (AUTO) 0.1 K/uL (0.0-0.2); BASOPHILS % (AUTO) 1.2 % (0.0-2.0); EOSINOPHILS # (AUTO) 0.2 K/uL (0.0-0.4); EOSINOPHILS % (AUTO) 1.9 % (0.0-4.0); HEMATOCRIT 42.6 % (36-54); HEMOGLOBIN 14.4 g/dL (14.0-18.0); LYMPHOCYTES % (AUTO) 18.8 % (20.5-51.5); MEAN CORPUSCULAR HEMOGLOBIN 30 pg (27-31); MEAN CORPUSCULAR HGB CONC 34 % (32-36); MEAN CORPUSCULAR VOLUME 89 fL (79.0-98.0); MONOCYTES # (AUTO) 0.8 K/uL (0.0-1.0); MONOCYTES % (AUTO) 7.4 % (1.7-9.3); NEUTROPHILS # (AUTO) 7.6 K/uL (1.8-7.7); NEUTROPHILS % (AUTO) 70.7 % (40.0-70.0); PLATELET COUNT (AUTO) 268 K/uL (130-430); RED BLOOD CELL COUNT(AUTO) 4.81 MIL/uL (4.2-6.2); RED CELL DISTRIBUTION WIDTH 13.2 % (9.0-15.0); WHITE BLOOD COUNT (AUTO) 10.8 K/uL (4.8-10.8)
[2019-12-04] MEDS ORDERED: SIMETHICONE 40 MG/0.6 ML ML ONE (07:04)
[2019-12-04] MEDS ORDERED: MEPERIDINE HCL/PF 100 MG/ML AMP ONE (07:04)
--- NOTE | 2019-12-04 07:04 | NUR ---
CLOSING NOTES Patient is resting, no signs of acute respiratory distress noted. IV site patent, dressings c/d/i, IVF running. SCDs refused at this time. Patient ambulates with steady gait to the restroom throughout shift, dressings changed. Call light within reach, bed alarm refused after patient verbalizes proper demonstration of call light, bed at lowest position. All needs met throughout shift. Will continue to monitor.
[2019-12-04 07:09] LABS: PROTHROMBIN TIME 10.3 SECS (9.5-12.5)
[2019-12-04] MEDS: MIDAZOLAM HCL 5 MG/5 ML VIAL ONE ×5 (07:27→08:03)
[2019-12-04 07:35] LABS: C-REACTIVE PROTEIN QUANT 0.7 mg/dL (0-0.5); CALCIUM 8.3 mg/dL (8.4-11.0); CREATININE 0.93 mg/dL (0.55-1.30); POTASSIUM 3.3 mmol/L (3.5-5.1)
[2019-12-04] MEDS: fentaNYL CITRATE/PF 100 MCG/2 ML AMP ONE ×5 (07:55→09:24)
[2019-12-04 08:26] LABS: ERYTHROCYTE SEDIMENTATION RATE 7 MM/HR (0-15)
--- NOTE | 2019-12-04 09:10 | NUR ---
Note Pt returned from GI lab (Diverticulitis/Hemorrhoids/Polyps) via wheelchair. No SOB/resp distress noted at this time. Right AC IV intact and patent at this time. Pt ambulated to restroom with steady gait. Call light within reach.
[2019-12-04 09:20] VITALS: BP_SYST 130
[2019-12-04] MEDS: SIMETHICONE 80 MG TAB.CHEW PO SCH ×3 (09:26→21:29)
[2019-12-04] MEDS: LIDOCAINE PATCH 5% 1 EA TP SCH (09:27)
[2019-12-04] MEDS: PANTOPRAZOLE SODIUM 40 MG/VIAL (PROTONIX) IVP SCH ×2 (09:34→21:29)
[2019-12-04] MEDS: MORPHINE 2 MG/ML INJ. SYRINGE IVP PRN ×2 (09:35→22:11)
--- NOTE | 2019-12-04 09:35 | NUR ---
Note Morphine 2mg IVP given at this time.
--- NOTE | 2019-12-04 10:00 | NUR ---
Note Dr Coffey was at pt's bedside assessing pt and answering questions/concerns at this time.
[2019-12-04] MEDS: D5/0.45 NS 1,000 ML IV SCH ×2 (11:31→21:30)
--- NOTE | 2019-12-04 11:57 | NUR ---
Dietitian Recommendations *Advance diet (regular diet) *Provide double portion of protein during lunch and dinner. Please see Nutritional Assessment for details ABDIEL ANN
[2019-12-04 12:54] VITALS: BP_SYST 156
--- NOTE | 2019-12-04 13:55 | NUR ---
WOUND EVALUATION: Wound Consult received from Dr. Tatum. Thank you, Dr. Tatum, for the consult. Patient received in a Diego Bed with an IsoFlex MIMI mattress, awake, alert, and oriented. Patient is able to turn independently. Albert Score is a 19. Past Medical History: Coronary Artery Disease, Acute Myocardial Infarction, Chronic Back Pain, Marijuana abuse, Methamphetamine abuse. Patient is s/p Incision and Drainage of Right Lateral Scrotal Abscess by Dr. Femi Tatum on 12/03/2019. Recent Labs: WBC 10.8, RBC 4.81, hemoglobin 14.4, hematocrit 42.6, sodium 133, potassium 3.3, BUN 7, creatinine 0.93, GFR 91, glucose 142, calcium 8.3, C-reactive protein 0.7, albumin 3.1. Microbiology: Blood culture results x2 in progress. Urine culture results negative. MRSA screen results negative. Wound culture results in progress. Intrinsic factors that delay wound healing: Coronary Artery Disease, Acute Myocardial Infarction, Hypoalbuminemia. Extrinsic factors that delay wound healing: Decreased mobility. Wound Assessment: 1. Right Lateral Posterior Scrotum: Abscess, present on admission. Abscess is s/p Incision and Drainage by Dr. Femi Tatum on 12/03/2019. Wound bed has 100% pink tissue. Incision is cut in a diagonal fashion. No odor, no drainage. Periwound intact. Surrounding tissue has mild calor and mild edema. No erythema noted. Measures 2.0 cm x 0.2 cm x 0.5 cm. Recommend: Cleanse wound with normal saline. Apply SurePrep to chelsey-wound. Apply Hydrogel to wound bed. Pack wound with 1/4 inch iodoform packing strip. Cover with 4x4 foam dressing. Perform wound care daily, and as needed for dressing soiling or dislodgement. Also recommend: Encourage patient to reposition every 2 hours with pillow support and off-load pressure areas with pillows for pressure re-distribution. Offload, elevate and float bilateral heels with pillows. Perform skin care and monitor skin integrity Q shift.
--- NOTE | 2019-12-04 14:30 | NUR ---
Note Pt resting in bed after Morphine 4mg IVP was given. Pt had wound care done on scrotum by police and fire dispatcher Gabriel. IVPB antibiotics infusing at this time. No needs noted at this time. Call light within reach.
--- NOTE | 2019-12-04 15:25 | NUR ---
Note Dr Shea on the floor to assess pt. Pt resting in bed talking on the phone speaking to family/friends. No needs noted at this time. Call light within reach.
--- NOTE | 2019-12-04 15:28 | NUR ---
Note Dr Freeman called for update on pt's status.
[2019-12-04] MEDS ORDERED: POTASSIUM CHLORIDE 20 MEQ TAB.PRT.SR PO ONE (16:00)
[2019-12-04 17:16] VITALS: BP_SYST 133
--- NOTE | 2019-12-04 18:05 | NUR ---
Note Pt sitting up in bed eating his Regular dinner tray. No Abdominal pain/discomfort noted at this time. Tolerated regular diet well. No SOB/resp distress noted. IV in RAC intact and patent at this time. Pt was checked on q1' and PRN all shift for needs and care. Pt next to nurses' station all shift for close observation for needs and care. Pt was maintained with safety precautions all shift. No needs noted at this time. Call light within reach.
--- NOTE | 2019-12-04 19:15 | NUR ---
OPENING NOTE PATIENT ASLEEP AT THIS TIME. NO SIGNS OF RESPIRATORY DISTRESS AND DISCOMFORT NOTED. BREATHING EVEN AND UNLABORED. ON ROOM AIR TOLERATING WELL. CALL LIGHT WITHIN REACH. BED LOCKED AND IN LOWEST POSITION. SAFETY PRECAUTIONS IN PLACE. WILL CONTINUE TO MONITOR PATIENT.
[2019-12-04 20:00] VITALS: BP_SYST 122
--- NOTE | 2019-12-04 21:30 | NUR ---
MED PASS. WOUND CARE DUE MEDICATION GIVEN AT THIS TIME. PATIENT AWAKE, A0X4. PATIENT WAS EDUCATED ON MEDICATION THAT WAS GIVEN, FOR ITS PURPOSE, SIDE EFFECT AND BENEFITS. PATIENT ABLE TO VERBALIZED UNDERSTANDING. WOUND CARE DONE WELL, PATIENT TOLERATED WELL. CALL LIGHT WITHIN REACH. PATIENT WAS EDUCATED TO USE CALL LIGHT WHEN ASSISTANCE IS NEEDED. PATIENT ABLE TO VERBALIZED UNDERSTANDING. BED LOCKED AND IN LOWEST POSITION. SCD'S OPERATING WELL. SAFETY PRECAUTIONS IN PLACE. WILL CONTINUE TO MONITOR PATIENT
--- NOTE | 2019-12-04 23:45 | NUR ---
RN ROUNDS/ VITAL SIGNS VITAL SIGNS TAKEN AT THIS TIME. PATIENT HAS NO SIGNS OF RESPIRATORY DISTRESS AND DISCOMFORT NOTED. BREATHING EVEN AND UNLABORED. ON ROOM AIR TOLERATING WELL. IVF INFUSING WELL. CALL LIGHT WITHIN REACH. SAFETY PRECAUTIONS IN PLACE. WILL CONTINUE TO MONITOR PATIENT
[2019-12-05] VITALS: BP_SYST 135
[2019-12-05] MEDS: MORPHINE 4 MG/ML INJ. SYRINGE IVP PRN ×4 (01:02→17:29)
--- NOTE | 2019-12-05 02:15 | NUR ---
RN ROUNDS PATIENT ASLEEP AT THIS TIME. NO SIGNS OF RESPIRATORY DISTRESS AND DISCOMFORT NOTED. BREATHING EVEN AND UNLABORED. ON ROOM AIR TOLERATING WELL. IVF INFUSING WELL. CALL LIGHT WITHIN REACH. SAFETY PRECAUTIONS IN PLACE. WILL CONTINUE TO MONITOR PATIENT.
[2019-12-05] MEDS: VANCOMYCIN HCL 1,500 MG in NS 250 ML IV SCH (03:51)
[2019-12-05] MEDS: MORPHINE 2 MG/ML INJ. SYRINGE IVP PRN (04:09)
--- NOTE | 2019-12-05 04:25 | NUR ---
IV RE INSERTION PATIENT VERBALIZED PAIN IN THE IV SITE. INFILTRATION NOTED.IV RE INSERTION DON IN THE LEFT AC #22, FLUSHING WELL, PATENCY NOTED AT THIS TIME. PATIENT TOLERATED WELL. PATIENT HAS NO SIGNS OF RESPIRATORY DISTRESS NOTED. BREATHING EVEN AND UNLABORED. ON ROOM AIR TOLERATING WELL. IVF INFUSING WELL AT THIS TIME WITHOUT COMPLAINT. CALL LIGHT WITHIN REACH. SAFETY PRECAUTIONS IN PLACE. WILL CONTINUE TO MONITOR PATIENT.
[2019-12-05] MEDS: PIPERACILLIN/TAZO 4.5GM/DEX-IS 100 ML IV SCH ×2 (05:45→13:30)
[2019-12-05] MEDS: D5/0.45 NS 1,000 ML IV SCH ×2 (06:23→17:59)
--- NOTE | 2019-12-05 06:36 | NUR ---
CLOSING NOTE PATIENT ASLEEP AT THIS TIME. NO SIGNS OF RESPIRATORY DISTRESS AND DISCOMFORT NOTED. BREATHING EVEN AND UNLABORED. ON ROOM AIR, TOLERATING WELL. IVF INFUSING WELL. CALL LIGHT WITHIN REACH. BED LOCKED AND IN LOWEST POSITION. SAFETY PRECAUTIONS IN PLACE. ROUNDING Q1 DONE WELL. ALL NEEDS MET THROUGHOUT THE SHIFT. WILL CONTINUE TO MONITOR PATIENT UNTIL ENDORSE TO ONCOMING SHIFT NURSE FOR CONTINUITY OF CARE.
[2019-12-05 07:06] LABS: BASOPHILS # (AUTO) 0.2 K/uL (0.0-0.2); BASOPHILS % (AUTO) 1.3 % (0.0-2.0); EOSINOPHILS # (AUTO) 0.2 K/uL (0.0-0.4); EOSINOPHILS % (AUTO) 1.5 % (0.0-4.0); HEMATOCRIT 46.8 % (36-54); HEMOGLOBIN 15.9 g/dL (14.0-18.0); LYMPHOCYTES # (AUTO) 2.1 K/uL (1.0-5.5); LYMPHOCYTES % (AUTO) 17.3 % (20.5-51.5); MEAN CORPUSCULAR HEMOGLOBIN 30 pg (27-31); MEAN CORPUSCULAR HGB CONC 34 % (32-36); MEAN CORPUSCULAR VOLUME 89 fL (79.0-98.0); MONOCYTES # (AUTO) 0.9 K/uL (0.0-1.0); MONOCYTES % (AUTO) 7.3 % (1.7-9.3); NEUTROPHILS % (AUTO) 72.6 % (40.0-70.0); PLATELET COUNT (AUTO) 292 K/uL (130-430); RED BLOOD CELL COUNT(AUTO) 5.28 MIL/uL (4.2-6.2); RED CELL DISTRIBUTION WIDTH 13.5 % (9.0-15.0); WHITE BLOOD COUNT (AUTO) 12.4 K/uL (4.8-10.8)
[2019-12-05 07:20] VITALS: BP_SYST 157
--- NOTE | 2019-12-05 07:30 | NUR ---
Opening Note Patient is laying in bed A&O x4 with no signs of distress or discomfort, safety measures put in place, bed locked and at low position, call light within reach, fall and aspiration precautions put in place, will monitor patient for any changes.
[2019-12-05 07:37] LABS: C-REACTIVE PROTEIN QUANT 0.8 mg/dL (0-0.5); CALCIUM 8.7 mg/dL (8.4-11.0); CREATININE 1.18 mg/dL (0.55-1.30); POTASSIUM 4.1 mmol/L (3.5-5.1)
--- NOTE | 2019-12-05 07:49 | NUR ---
MD Rounds Dr. Bowman assessed patient at bedside, no new orders.
[2019-12-05 07:55] LABS: ERYTHROCYTE SEDIMENTATION RATE 5 MM/HR (0-15)
[2019-12-05] MEDS: PANTOPRAZOLE SODIUM 40 MG/VIAL (PROTONIX) IVP SCH (08:22)
[2019-12-05] MEDS: SIMETHICONE 80 MG TAB.CHEW PO SCH ×2 (08:22→15:22)
[2019-12-05] MEDS: LIDOCAINE PATCH 5% 1 EA TP SCH (08:23)
--- NOTE | 2019-12-05 11:10 | NUR ---
RN Rounds patient laying in bed resting, no signs of distress noted, respirations even and unlabored, informed patient that pain medication was not due at this time, patient responded he could wait until due time, no other needs at this time, safety measures maintained, bed locked and at low position, call light within reach.
[2019-12-05 12:00] VITALS: BP_SYST 141
--- NOTE | 2019-12-05 12:41 | NUR ---
Nutrition F/U Admitting Diagnosis: Abdominal pain Medical History Comment: Pt presents w/: LUQ pain, Hx of SC in 2013, Leukocytosis per MD notes. 12/02 S/P I&D of Right Lateral Scrotal Abscess, Excision of scrotal lesion. 12/03 S/P EGD w/ Bx and Colonoscopy SARS-CoV-2 Ag Rapid 11/28 Negative Subjective Information Pt was not available earlier during RD rounds. Nutrition Consult received for S/P I&D scrotal abscess. RD placed phone call to pt's room after lunch and s/w pt who reported of good appetite and has been tolerating diet well. Pt agreed to RD rec for Seven to aid in wound healing. Pt is anxious to go home. Current Diet Order/Nutrition Support: Regular diet x 1 day Pertinent Medications Piperacillin/tazobactam, Vancomycin, Zofran, Protonix IV Pertinent Labs 12/04 Na 134L, K 4.1L, BG 97 WNL, BUN 11WNL, CRE 1.18WNL Skin Integrity Comment: Albert scale: 21. No pressure injury. +Surgical wound to scrotum. No edema noted per RN. Current % PO Good (75-100%) Estimated Energy Expenditure (kcals/day) 1557-1440 kcal/day (25-30 kcal/kg IBW for maintenance) Estimated Protein Required (g/day) 73-95 gm/day (1-1.3 gm/kg IBW for post surgery repletion) Estimated Fluid Required (l/day) 2.2 L/day (30ml/kg IBW for maintenance) Problem/Etiology/Signs/Symptoms Predicted suboptimal nutrient intake r/t current diet order AEB PO intake meets <75% of estimated needs on clear liquid diet. (*improved w/ diet advanced) Increased risk for malnutrition r/t obesity AEB BMI 39.1 kg/m2. (*ongoing) Expected Outcomes/Goals Monitor appetite and PO intake w/ goal of pt meeting more than 75% of estimated nutritional needs, labs trending WNL, normal GI function, skin integrity/wt maintenance. Dietitian Recommendations * Continue w/ regular diet. Provide double portion of protein during lunch and dinner. * Recommend Seven BID. Follow Up Mod Risk: F/U in 3-5 days
--- NOTE | 2019-12-05 12:49 | NUR ---
Dietitian Recommendations * Continue w/ regular diet. Provide double portion of protein during lunch and dinner. * Recommend Seven BID. Please see Nutrition F/U note for details. ABDIEL ANN
[2019-12-05] MEDS ORDERED: VANCOMYCIN HCL 1,250 MG in NS 250 ML IV SCH (13:00)
--- NOTE | 2019-12-05 14:03 | NUR ---
Discharge Planning: DCP faxed pt referral to contracted , [facility] ([phone]) and [facility] ([phone]) DCP to follow up Addendum: 12/05/19 at 1736 by Aniya Brandon DP [facility] ([phone]) accepted per Mireya and [facility] ([phone]) no contracted. DCP faxed pt referral to [facility] for IV medication. DCP to follow up
--- NOTE | 2019-12-05 14:52 | NUR ---
Plan of Care discussed with the patient. The patient was up ambulating to the restroom, patient was comfortable and stating that he always has intermittent pain. Educated the patient on need to wait for wound cultures to be resulted in order for the doctor to decide what antibiotic the patient will need for discharge, and home health is being arranged. The patient is agreeable and verbalized understanding.
--- NOTE | 2019-12-05 16:21 | NUR ---
Spoke with Dr. Shea, A reported that wound culture results are back but susceptibility report is not back yet, Dr. Shea stated to wait for the susceptibility report to discharge patient with appropriate antibiotics, patient will stay overnight probably.
[2019-12-05 16:57] VITALS: BP_SYST 147
--- NOTE | 2019-12-05 17:37 | NUR ---
RN Rounds/Wound Care patient in bed resting, administered pain medication as ordered per MD, informed patient of wound care treatment/dressing change, patient refused wound care dressing change at this time, will monitor patient for any changes.
--- NOTE | 2019-12-05 18:53 | NUR ---
Closing Note, patient in bed resting, all needs met, will endorse report to oncoming manufacturing shift supervisor nurse, safety measures maintained through out shift.
[2019-12-05] MEDS ORDERED: LEVO500T89 PO ×2 (19:27→20:09)
[2019-12-05] MEDS ORDERED: CLIN300C11 PO ×2 (19:27→20:09)
[2019-12-05 19:34] VITALS: BP_SYST 135
[2019-12-05] MEDS ORDERED: Lidocaine Patch 5% TP (20:09)
--- NOTE | 2019-12-05 20:20 | NUR ---
DISCHARGE PATIENT AOX4. AMBULATE WITH STEADY GAIT. VITAL SIGNS WNL. NO SIGNS OF RESPIRATORY DISTRESS NOTE. DENIES PAIN AND DISCOMFORT. PATIENT WAS EDUCATED ON HOME MEDICATION, FOR ITS PURPOSE, SIDE EFFECT AND BENEFITS. FOLLOW UP APPOINTMENT WITH PCP, TO FOLLOW UP WITH HOME HEALTH FOR WOUND CARE, PATIENT WAS EDUCATED TO REPORT ANY SIGNS AND SYMPTOMS OF INFECTION. PATIENT ABLE TO VERBALIZED UNDERSTANDING. DISCHARGE PACKET SENT TO PATIENT. IV CATHETER REMOVED, PATIENT TOLERATED WELL. ALL QUESTIONS WERE ANSWERED. PATIENT WAS ASSISTED VIA WHEELCHAIR OUT TO FACILITY TO PRIVATE CAR. WAS PICKED UP BY DAUGHTER COLEEN.
--- NOTE | 2019-12-13 12:39 | NUR ---
Discharge Follow Up Phone Call Phoned patient, , and left a voicemail message with reminder to make follow up appointments, request for information on home health follow up, offer of assistance, and Social Service contact information. Will remain available upon patient request.
== END 2019-12-05 20:20 | disposition home health service (06) | DRG 244 ==
LOC: SED 17:48 → SMU 21:59
PROVIDERS: ADMIT Preventive Medicine Preventive Medicine/Occupational Environmental Medicine; ATTEND Preventive Medicine Preventive Medicine/Occupational Environmental Medicine
PROC: 0DB78ZX Excision of Stomach, Pylorus, Via Natural or Artificial Opening Endoscopic, Diagnostic (ICD-10-PCS; principal; 2019-11-30 11:30)
PROC: 0VB50ZZ Excision of Scrotum, Open Approach (ICD-10-PCS; 2019-12-03)
PROC: 0V95XZX Drainage of Scrotum, External Approach, Diagnostic (ICD-10-PCS; 2019-12-03)
PROC: 0DBE8ZX Excision of Large Intestine, Via Natural or Artificial Opening Endoscopic, Diagnostic (ICD-10-PCS; 2019-12-04)
DX: K57.30 Diverticulosis of large intestine without perforation or abscess without bleeding (principal); K44.9 Diaphragmatic hernia without obstruction or gangrene; K20.9 Esophagitis, unspecified; K63.5 Polyp of colon; K64.4 Residual hemorrhoidal skin tags; N49.2 Inflammatory disorders of scrotum; L02.214 Cutaneous abscess of groin; K62.1 Rectal polyp; R65.10 Systemic inflammatory response syndrome (SIRS) of non-infectious origin without acute organ dysfunction; E87.1 Hypo-osmolality and hyponatremia; E83.51 Hypocalcemia; M54.9 Dorsalgia, unspecified; G89.29 Other chronic pain; I25.10 Atherosclerotic heart disease of native coronary artery without angina pectoris; F12.10 Cannabis abuse, uncomplicated; F15.10 Other stimulant abuse, uncomplicated; D72.829 Elevated white blood cell count, unspecified; E66.9 Obesity, unspecified; G40.909 Epilepsy, unspecified, not intractable, without status epilepticus; J44.9 Chronic obstructive pulmonary disease, unspecified; I10 Essential (primary) hypertension; E11.65 Type 2 diabetes mellitus with hyperglycemia; E03.9 Hypothyroidism, unspecified; E78.5 Hyperlipidemia, unspecified; Z20.828 Contact with and (suspected) exposure to other viral communicable diseases; N50.819 Testicular pain, unspecified; I25.2 Old myocardial infarction; Z68.39 Body mass index [BMI] 39.0-39.9, adult; Z86.73 Personal history of transient ischemic attack (TIA), and cerebral infarction without residual deficits
CPT/HCPCS: 36415; 43239; 45385; 71045; 71100; 71275; 72128; 72191; 74175; 74249; 76700-TC; 76870-TC; 80048; 80053; 80202-TC; 80307; 81003; 83605; 83690-TC; 84484; 85025; 85610-TC; 85651-TC; 85730-TC; 86140; 86886; 86900; 86901; 87040-TC; 87070; 87070-TC; 87075-TC; 87081; 87086; 88305; 88312; 88313; 93005; 93306; 94010; 96361; 96374; 96375; 99285; C9113; G0482; J0696; J1885; J2175; J2250; J2270; J2405; J2543; J2704; J3010; J3370; J3490; J7030; J7042; J7050; J7120; Q9963; Q9967

== ENCOUNTER 2020-05-13 19:45 | Emergency (ER) | payer MEDICAID ==
[~2020-05-13] VITALS: Ht 175.3 cm; Wt 97.5 kg
[~2020-05-13 19:45] MED LIST changes: -BUPIVACAINE /DEX PF 0.75% SPINAL 2 ML AMP INJ ONE; -BUPIVACAINE /PF 0.25% 30 ML VIAL INJ ONE; +CLIN300C11 PO; +LEVO500T89 PO; -LR 1,000 ML IV.SOLN IV ONE; +Lidocaine Patch 5% TP; -MIDAZOLAM HCL 5 MG/5 ML VIAL IVP ONE; -NS IRRIG SOLN 1000 ML IR ONE; -PROPOFOL 200MG/ 20ML VIAL (DIPRIVAN) IV ONE; -cefTRIAXone 1 GM VIAL IV ONE
[2020-05-13 19:51] VITALS: BP_SYST 130
[2020-05-13] MEDS ORDERED: ONDANSETRON HCL 4 MG/2 ML VIAL IVP ONE (20:30)
[2020-05-13] MEDS ORDERED: NACL 0.9% 1,000 ML IV ONE ×2 (20:30)
[2020-05-13] MEDS ORDERED: MORPHINE 2 MG/ML INJ. SYRINGE IVP ONE (20:30)
[2020-05-13 20:51] LABS: BASOPHILS # (AUTO) 0.1 K/uL (0.0-0.2); BASOPHILS % (AUTO) 0.7 % (0.0-2.0); EOSINOPHILS # (AUTO) 0.2 K/uL (0.0-0.4); EOSINOPHILS % (AUTO) 1.8 % (0.0-4.0); HEMATOCRIT 48.3 % (36-54); HEMOGLOBIN 16.3 g/dL (14.0-18.0); LYMPHOCYTES # (AUTO) 2.6 K/uL (1.0-5.5); LYMPHOCYTES % (AUTO) 23.7 % (20.5-51.5); MEAN CORPUSCULAR HEMOGLOBIN 30 pg (27-31); MEAN CORPUSCULAR HGB CONC 34 % (32-36); MEAN CORPUSCULAR VOLUME 89 fL (79.0-98.0); MONOCYTES # (AUTO) 0.8 K/uL (0.0-1.0); MONOCYTES % (AUTO) 7.1 % (1.7-9.3); NEUTROPHILS # (AUTO) 7.4 K/uL (1.8-7.7); NEUTROPHILS % (AUTO) 66.7 % (40.0-70.0); PLATELET COUNT (AUTO) 275 K/uL (130-430); RED BLOOD CELL COUNT(AUTO) 5.42 MIL/uL (4.2-6.2); RED CELL DISTRIBUTION WIDTH 13.3 % (9.0-15.0); WHITE BLOOD COUNT (AUTO) 11.1 K/uL (4.8-10.8)
[2020-05-13 21:21] LABS: ANION GAP 5 (5-15); CALCIUM 8.1 mg/dL (8.4-11.0); CHLORIDE 104 mmol/L (98-107); CREATININE 1.23 mg/dL (0.55-1.30); GLUCOSE 156 mg/dL (70-99); SODIUM SERUM 139 mmol/L (136-145); UREA NITROGEN, BLOOD 14 mg/dL (8-21)
[2020-05-13 21:27] LABS: ALANINE AMINOTRANSFERASE 51 U/L (12-78); ALBUMIN 3.4 g/dL (3.4-4.8); ASPARTATE AMINOTRANSFERASE 28 U/L (10-37); TOTAL BILIRUBIN 0.2 mg/dL (0.0-1.0)
[2020-05-13 21:34] LABS: GFR AFRICAN AMERICAN 80 mL/min (>90)
[2020-05-13 21:35] LABS: ALCOHOL, BLOOD < 3 mg/dL (<10)
[2020-05-13 22:13] VITALS: BP_SYST 152
== END 2020-05-13 22:13 | disposition home or self-care (01) ==
LOC: SED 19:45
DX: R10.30 Lower abdominal pain, unspecified (principal)
CPT/HCPCS: 36415; 74176; 76376; 80053; 83605; 85025; 93005; 99284; G0482; J2270; J7030